=== PATIENT | female | born 1975 | race Caucasian/White ===

== ENCOUNTER 2018-07-26 03:08 | Emergency (ER) | payer MEDICAID ==
[~2018-07-26] VITALS: Ht 157.5 cm; Wt 64.0 kg
[2018-07-26 03:13] VITALS: Ht 157.5 cm; Wt 64.0 kg
[2018-07-26] MEDS ORDERED: traMADol 50 MG TAB PO ONE (04:30)
[2018-07-26] MEDS ORDERED: BACITRACIN 0.9 GM OINT TOP ONE (04:30)
[2018-07-26] MEDS ORDERED: LORAZEPAM 1 MG TAB PO ONE (04:30)
[2018-07-26] MEDS ORDERED: NAPR-688 PO (04:44)
[2018-07-26] MEDS ORDERED: LORA-441 PO (04:44)
[2018-07-26] MEDS ORDERED: ACET-141 PO (04:44)
[2018-07-26] MEDS ORDERED: MUPI22OI2 TOP (04:44)
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
[2018-07-26 06:06] VITALS: BP 112/58; PULSE 80; RESP 17
== END 2018-07-26 06:06 | disposition home or self-care (01) ==
LOC: FTE 03:08
DX: S09.90XA Unspecified injury of head, initial encounter (principal); S81.811A Laceration without foreign body, right lower leg, initial encounter; S70.12XA Contusion of left thigh, initial encounter; F41.9 Anxiety disorder, unspecified; T74.11XA Adult physical abuse, confirmed, initial encounter; Y09 Assault by unspecified means
CPT/HCPCS: Z7502; Z7610; 99283